=== PATIENT | male | born 1985 ===

== ENCOUNTER 2017-12-12 08:18 | Inpatient (IN) | payer SELFPAY ==
[~2017-12-12] VITALS: Ht 175.3 cm; Wt 68.5 kg
[2017-12-12 08:20] VITALS: Ht 175.3 cm; Wt 68.5 kg
[2017-12-12 08:59] LABS: BASOPHIL % 0.1 % (0-2); PLATELET COUNT 235 x10^3mcL (130-400); RED CELL DISTRIBUTION WIDTH 13.3 % (11.5-14.5)
[2017-12-12 09:13] LABS: CALCIUM 8.9 mg/dL (8.5-10.1); CARBON DIOXIDE 26.2 mmol/L (21-32); CHLORIDE SERUM 103 mmol/L (98-107); CREATININE SERUM 0.9 mg/dL (0.7-1.3); GFR1 > 60 mL/min; GLUCOSE SERUM 111 mg/dL (74-106); POTASSIUM SERUM 3.8 mmol/L (3.5-5.1); SODIUM SERUM 139 mmol/L (136-145)
[2017-12-12 09:18] LABS: ALBUMIN 4.3 g/dL (3.4-5.0); ALKALINE PHOSPHATASE 59 U/L (46-116); ALT/SGPT 31 U/L (16-63); AMYLASE 85 U/L (25-115); AST/SGOT 21 U/L (15-37); BILIRUBIN TOTAL 0.8 mg/dL (0.20-1.00); LIPASE 140 IU/L (73-393); TOTAL PROTEIN, SERUM 7.7 g/dL (6.4-8.2)
[2017-12-12 10:42] LABS: microscopic required? NO
[2017-12-12 11:35] LABS: UA SPECIFIC GRAVITY 1.025 (1.005-1.035); urine erythrocyte NEGATIVE (NEGATIVE)
[2017-12-12 11:56] LABS: MAGNESIUM 1.8 mg/dL (1.8-2.4); PHOSPHOROUS 2.2 mg/dL (2.5-4.9)
[2017-12-12 12:01] LABS: T3 TOTAL 1.06 ng/mL
[2017-12-12 12:07] LABS: CHOLESTEROL/HDL RATIO 1.8
[2017-12-12 12:33] LABS: FREE THYROXINE INDEX 1.9 ug/dL (1.4-4.5)
[2017-12-12 12:51] VITALS: BP 122/66
[2017-12-12 13:06] VITALS: BP 122/66
[2017-12-12 15:10] LABS: AMPHETAMINE QUAL UR NONE DETECTED (NEG <=1000)
[2017-12-12 16:56] VITALS: BP 117/63
[2017-12-12 21:18] VITALS: BP 112/56
[2017-12-13 05:54] VITALS: BP 116/71
[2017-12-13 09:45] VITALS: BP 118/72
[2017-12-13] MEDS ORDERED: BD LACTINEX1.4 MG PO (10:11)
[2017-12-13] MEDS ORDERED: KEFLEX500 M1 PO (10:11)
[2017-12-13] MEDS ORDERED: MOT800 PO (10:12)
[2017-12-13 11:16] VITALS: BP 118/72
== END 2017-12-13 13:15 | disposition home or self-care (01) | DRG 343 ==
LOC: ED 08:18 → MU 09:54 → DU 09:54 → MU 12-13 06:38
PROVIDERS: Emergency Medicine; Family Medicine Sports Medicine; Surgery
PROC: 0DTJ4ZZ Resection of Appendix, Percutaneous Endoscopic Approach (ICD-10-PCS; principal; 2017-12-12 10:30)
DX: K35.80 Unspecified acute appendicitis (principal)
CPT/HCPCS: 83880; 84439; J0330; J0694; J1885; J2270; J2704; J2710; J2765; J3010; J3490; J7030; J7120